=== PATIENT | male | born 1985 | race Two or more races ===

== ENCOUNTER 2022-11-18 18:43 | Emergency (ER) | payer MEDICAID, OTHER ==
[~2022-11-18] VITALS: Ht 177.8 cm; Wt 85.9 kg
[2022-11-18 23:23] VITALS: BP 125/71
[2022-11-18] MEDS ORDERED: CEPH-510 PO (23:37)
[2022-11-18] MEDS ORDERED: cefTRIAXone SOD 1,000 MG VL IM ONE (23:45)
== END 2022-11-18 23:58 | disposition home or self-care (01) ==
LOC: ER 18:43
DX: L03.116 Cellulitis of left lower limb (principal); F17.210 Nicotine dependence, cigarettes, uncomplicated
CPT/HCPCS: 96372; 99283; J0696

== ENCOUNTER 2022-11-30 00:22 | Emergency (ER) | payer MEDICAID ==
[~2022-11-30 00:22] MED LIST: CEPH-510 PO
== END 2022-11-30 01:00 | disposition left against medical advice (07) ==
LOC: ER 00:24
DX: M79.672 Pain in left foot (principal); Z53.21 Procedure and treatment not carried out due to patient leaving prior to being seen by health care provider